=== PATIENT | female | born 1965 | race Two or more races ===

== ENCOUNTER 2025-03-12 20:59 | Emergency (ER) | payer OTHER ==
[~2025-03-12] VITALS: Ht 154.9 cm; Wt 63.5 kg
[2025-03-12] MEDS ORDERED: JARDIANCE10 MG PO (21:24)
[2025-03-12] MEDS ORDERED: EZETIMIBE10 MG PO (21:25)
[2025-03-12] MEDS ORDERED: LOSARTAN-HCTZ1 EAC2 PO (21:25)
[2025-03-12] MEDS ORDERED: METOPROLOL SUC100 MG PO (21:25)
[2025-03-12] MEDS ORDERED: LEVOTHYROXINE25 MCG PO (21:26)
[2025-03-12] MEDS ORDERED: 0.9 % SODIUM CHLORIDE 1,000 ML IV STA (22:11)
[2025-03-12] MEDS ORDERED: NALOXONE HCL 0.4 MG/ML AMPUL IV STA (22:12)
[2025-03-12] MEDS ORDERED: FLUMAZENIL 0.5 MG/5 ML ML IV STA (22:12)
[2025-03-12 23:13] LABS: BASO % 0.3 % (0.1-1.2); EOS # 0.04 (0.04-0.54); EOS % 0.7 % (0.7-7.0); LYMPH # 2.68 (1.18-3.74); LYMPH % 44.0 % (19.3-53.1); MEAN PLATELET VOLUME 9.70 fl (9.4-12.4); MONO # 0.41 (0.24-0.82); MONO % 6.7 % (4.7-12.5); NEUT # 2.92 (1.56-6.13); NEUT % 48.0 % (34.0-71.1); RED CELL DISTRIBUTION WIDTH 14.3 % (11.6-14.4)
[2025-03-12 23:31] LABS: INR < 0.93
[2025-03-12 23:43] LABS: ALT/SGPT 35.0 U/L (12-78); AST/SGOT 36.0 U/L (15-37); BILIRUBIN TOTAL 0.31 mg/dL (0.3-1.2); BUN CREA RATIO 31.0 (7.0-25.0); CREATININE SERUM 0.58 mg/dL (0.55-1.02); GFR 106.77; GLOBULINA 2.9 G/DL (2.4-3.5); GLUCOSE FASTING 81.0 mg/dL (65-100); OSMOLALITY SERUM 293.0 MOSM/KG (275-295); TSH 1.07 uIU/mL (0.358-3.74)
== END 2025-03-13 01:09 | disposition home or self-care (01) ==
LOC: ER 20:59
DX: R41.82 Altered mental status, unspecified (principal); R51.9 Headache, unspecified